=== PATIENT | female | born 2000 | race African-American/Black ===

== ENCOUNTER 2022-08-03 10:25 | Emergency (ER) | payer OTHER ==
[~2022-08-03] VITALS: Ht 157.5 cm; Wt 61.0 kg
[2022-08-03] MEDS ORDERED: BACITRACIN 0.9 GM PACKET OINTMENT TP ONE (11:30)
[2022-08-03] MEDS ORDERED: PERTUSS(ACELL),DIPH,TET VAC/PF 0.5 ML SYRINGE IM. ONE (11:30)
[2022-08-03] MEDS ORDERED: LIDOCAINE 1% 10 ML VIAL SQ ONE (11:30)
[2022-08-03 13:09] VITALS: BP 127/69
== END 2022-08-03 13:12 | disposition home or self-care (01) ==
LOC: EMS 10:30
DX: S01.111A Laceration without foreign body of right eyelid and periocular area, initial encounter (principal); Z98.890 Other specified postprocedural states; W22.8XXA Striking against or struck by other objects, initial encounter; Y93.89 Activity, other specified; Y92.89 Other specified places as the place of occurrence of the external cause; Y99.8 Other external cause status
CPT/HCPCS: 99283; 90715; 90471; 12011; J3490

== ENCOUNTER 2022-08-08 06:25 | Emergency (ER) | payer OTHER ==
[~2022-08-08] VITALS: Ht 157.5 cm; Wt 61.4 kg
[2022-08-08 06:29] VITALS: BP 104/50
[2022-08-08] MEDS ORDERED: SERT-158 PO (06:29)
== END 2022-08-08 06:53 | disposition home or self-care (01) ==
LOC: EMS 06:27
DX: S01.111D Laceration without foreign body of right eyelid and periocular area, subsequent encounter (principal); Z98.890 Other specified postprocedural states; Z87.442 Personal history of urinary calculi; X58.XXXD Exposure to other specified factors, subsequent encounter
CPT/HCPCS: 99281; 99282; Z7502